=== PATIENT | female | born 1980 | race Asian ===

== ENCOUNTER 2020-11-23 12:30 | Emergency (ER) | payer OTHER ==
[~2020-11-23] VITALS: Ht 149.9 cm; Wt 61.7 kg
[2020-11-23 12:43] VITALS: BP 118/78
--- NOTE | 2020-11-23 12:50 | NUR ---
40 Y/O F BIB SELF FROM HOME, PT STATES SHE FELL ROLLER SKATING ON L KNEE 1 MO AGO. PT STATES SHE FEELS "FLUID IN HER KNEE". DENIES HEAD INJURY, LOC, N/V/D. AMBULATES EVEN AND STEADY. DENIES PAIN AT THIS TIME OR DURING AMBULATION. STATES SHE STARTS TO FEEL THE PAIN WHEN SHE BENDS OVER 8/10 [place]. [facility] PMH: DENIES MED: NONE
[2020-11-23] MEDS ORDERED: IBUP-1842 PO (13:52)
[2020-11-23 14:00] VITALS: BP 118/78
[2020-11-23] MEDS: KETOROLAC 30 MG/ML VIAL IM ONE ×2 (14:02→14:24)
== END 2020-11-23 14:00 | disposition home or self-care (01) ==
LOC: MED 12:30
DX: M25.462 Effusion, left knee (principal); Z79.899 Other long term (current) drug therapy
CPT/HCPCS: 73562; 96372; 99283; J1885